=== PATIENT | female | born 1995 | race Two or more races ===

== ENCOUNTER 2016-07-15 12:07 | Emergency (ER) | payer OTHER ==
[2016-07-15 12:35] VITALS: BP 108/61; PULSE 71; TEMP 98.3; BMI 21.4
--- NOTE | 2016-07-15 14:50 | PDOC ---
History of Present Illness - General Chief Complaint: Pain Stated Complaint: RT LEG PAIN Time Seen by Provider: 07/15/16 12:52 History Source: Patient Exam Limitations: No Limitations - History of Present Illness Initial Comments: 07/15/16 14:45 Foot pain x 1 day Occurred: reports: this morning Severity: reports: mild Pain Location: reports: lower extremity Method of Injury: Yes: direct blow Past History - Past Medical History Allergies/Adverse Reactions: Allergies Allergy/AdvReac Type Severity Reaction Status Date / Time No Known Allergies Allergy Verified 07/15/16 12:31 Home Medications: Ambulatory Orders NK [No Known Home Medication] 01/16/15 Pnv with Ca,No.72/Iron/FA [ Plus Tablet] 1 each PO DAILY 01/16/15 Other medical history: none - Reproductive History (#): 1 Para: 0 - Psycho/Social/Smoking Cessation Hx Anxiety: No Suicidal Ideation: No Smoking History: Never smoked Have you smoked in the past 12 months: No Number of Cigarettes Smoked Daily: 0 Cigars Per Day: 0 Information on smoking cessation initiated: No Hx Alcohol Use: No Drug/Substance Use Hx: No Substance Use Type: None Review of Systems - Review of Systems Constitutional: No: Chills, Fever, Malaise HEENTM: Yes: Symptoms Reported Respiratory: No: Symptoms reported, Cough Musculoskeletal: Yes: Other (pain foot) Integumentary: No: Other Neurological: No: Symptoms reported *Physical Exam - Vital Signs Last Vital Signs Temp Pulse Resp BP Pulse Ox 98.3 F 71 18 108/61 100 07/15/16 12:32 07/15/16 12:32 07/15/16 12:32 07/15/16 12:32 07/15/16 12:32 - Physical Exam Respiratory/Chest: positive: Lungs Clear Musculoskeletal: positive: Other (tender to area of distal 1st MT; MCP non tenedr) ED Treatment Course - ADDITIONAL ORDERS Additional order review: Laboratory Results 07/15/16 13:03 Urine HCG, Qual Negative - RADIOLOGY Radiology Studies Ordered: Category Date Time Status FOOT-RIGHT [RAD] Stat Radiology 07/15/16 13:40 Completed Medical Decision Making - Medical Decision Making 07/15/16 14:47 xray negative; PE doesn't suggest gout; mild strain in primary substance abuse counselor *DC/Admit/Observation/Transfer Diagnosis at time of Disposition: Foot pain, right - Discharge Dispostion Disposition: HOME Condition at time of disposition: Stable Admit: No - Referrals Referrals: Koki Ghosh MD [Staff Physician] - - Patient Instructions Additional Instructions: advil 400mg 3 times daily; see foot MD 1 week if no better - Post Discharge Activity Work/School Note: Back to Work
== END 2016-07-15 14:53 | disposition home or self-care (01) ==
LOC: JERFT 12:07
DX: M79.671 Pain in right foot (principal); X58.XXXA Exposure to other specified factors, initial encounter; Y93.89 Activity, other specified; Y92.9 Unspecified place or not applicable
CPT/HCPCS: 73630-TC-RT; 84703; 99281-25

== ENCOUNTER 2020-08-31 09:28 | Emergency (ER) | payer OTHER ==
[2020-08-31 09:35] VITALS: BP 97/58; PULSE 68; TEMP 97.8; BMI 23.9
[2020-08-31 10:36] LABS: URINE APPEARANCE CLEAR; URINE BILIRUBIN NEGATIVE (NEGATIVE); URINE COLOR YELLOW; URINE GLUCOSE (UA) NEGATIVE (NEGATIVE); URINE KETONE NEGATIVE (NEGATIVE); URINE LEUK ESTERASE NEGATIVE (NEGATIVE); URINE NITRITE NEGATIVE (NEGATIVE); URINE PROTEIN NEGATIVE (NEGATIVE); URINE UROBILINOGEN 0.2 mg/dL (0.2-1.0)
== END 2020-08-31 12:13 | disposition home or self-care (01) ==
LOC: JERFT 09:28
DX: S86.891A Other injury of other muscle(s) and tendon(s) at lower leg level, right leg, initial encounter (principal); S86.892A Other injury of other muscle(s) and tendon(s) at lower leg level, left leg, initial encounter
CPT/HCPCS: 81003; 87086; 93970-TC; 99284-25

== ENCOUNTER 2020-09-20 08:23 | Emergency (ER) | payer OTHER ==
[2020-09-20 08:30] VITALS: BP 104/65; PULSE 76; TEMP 98.3; BMI 20.3
== END 2020-09-20 10:19 | disposition home or self-care (01) ==
LOC: JERFT 08:23
DX: M79.604 Pain in right leg (principal)
CPT/HCPCS: 73590-TC-RT-FY; 99283-25